=== PATIENT | female | born 2000 | race Hispanic/Latino ===

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

== ENCOUNTER 2024-05-18 02:42 | Emergency (ER) | payer BC ==
[~2024-05-18] VITALS: Ht 160 cm; Wt 104.8 kg
[2024-05-18 02:44] VITALS: TEMP 98.6
[2024-05-18 03:05] VITALS: BP 126/74; PULSE 77; RESP 19; O2SAT 99
--- NOTE | 2024-05-18 03:30 | ERN ---
ED Note History of Present Illness Stated Complaint: PAIN TO CHEEK AND RT EYE AFTER WISDOM TOOTH EXTRAC Chief Complaint: Tooth Ache/Pain Time Seen by MD: 02:53 Allergies: Coded Allergies: No Known Drug Allergies (Unverified Allergy, Unknown, 07/06/19) Past Medical History Dictation 21-year-old female who presents with tooth pain secondary to dental abscess. Patient states that she uses seen at another facility and admitted for two days and discharged today with antibiotics and pain medicine. Patient will versus she did not take her pain medicine nor her antibiotics because it was too eight per her to pick him up. Patient states that she did not wish to go back to the other facility where she was seen because she was unhappy with the care. The patient came here for re-evaluation. Patient denies fevers, nausea, vomiting diaphoresis, CP on procedure to be productive cough Past Medical History: No Pertinent History Surgical History: None LMP: Apr 19, 2024 Review of System Dictation See HPI Initial Vital Sign VS Vital Signs Date Time Temp Pulse Resp B/P (MAP) Pulse Ox O2 Delivery O2 Flow Rate FiO2 05/18/24 02:44 98.6 72 20 124/75 99 Room Air 05/18/24 03:05 0 21 Physical Exam Dictation Elevated BMI, uncomfortable, regular heart rate rhythm, no signs of respiratory distress ED Course ED Course Orders Procedure Category Date Status Time ,Urine Test LAB 05/18/24 Logged 03:16 Vital Signs Date Time Temp Pulse Resp B/P (MAP) Pulse Ox O2 Delivery O2 Flow Rate FiO2 05/18/24 03:05 77 19 126/74 99 Room Air* 0 21 05/18/24 02:44 98.6 72 20 124/75 99 Room Air Medical Decision Making MDM DDx: ludwigs angina versus retropharyngeal abscess, dental abscess, meningitis versus peritonsillar abscess Patient's vitals are stable here. Patient is afebrile. Patient is complaining of dental pain. Discussed with patient that we do not have max face or dentistry hearing the hospital on the I would have to transfer her. Patient does not wish to be transferred back to facility for which she came. Counseled patient about transferring her back to the facility with prior be best for continuation of care and moves experience. Patient states that she did not take any of her medicines today at that her pain is increased. Patient states she was told to come back to emergency department if her pain did not fasting worsened. Offered to control patient's pain into workup. Counseled patient the end result of workup would likely be he be transferred to facility with transfer to facility with [facility]. Patient elects to be discharged home. Discussed risks and benefits of discharge. Patient demonstrates capacity and reiterates her desire to be discharged to home. DX & DISP Disposition: Discharge Departure Impression: Primary Impression: Pain, dental Condition: Stable Additional Instructions: Please return to the emergency department immediately if he should change her mind about further evaluation. Please follow up with your previous starter pack next available appointment. Referrals: AMINATA ALMAGUER (PCP) Time of Disposition: 03:29 I have reviewed, & agreed with my scribe's, documentation. ARCADIO COSTA DO May 18, 2024 03:30
== END 2024-05-18 03:42 | disposition home or self-care (01) ==
LOC: EDH 02:42
DX: K08.89 Other specified disorders of teeth and supporting structures (principal)
CPT/HCPCS: 81025; 99283